=== PATIENT | male | born 1965 | race Caucasian/White ===

== ENCOUNTER → 2023-09-08 08:45 | Outpatient (REF) | payer BC, SELFPAY ==
[2023-09-08 13:07] LABS: INR 2.27; PT 24.9 Sec (11.4-14.6)
== END ==
LOC: HWLAB 08:45
PROVIDERS: ATTENDING PHYSICIAN Internal Medicine Cardiovascular Disease; FAMILY PHYSICIAN Internal Medicine
DX: Z95.2 Presence of prosthetic heart valve (principal)
CPT/HCPCS: 36415; 85610

== ENCOUNTER → 2023-10-06 09:00 | Outpatient (REF) | payer BC, SELFPAY ==
[2023-10-06 12:06] LABS: INR 2.25; PT 24.8 Sec (11.4-14.6)
== END ==
LOC: HWLAB 09:00
PROVIDERS: ATTENDING PHYSICIAN Internal Medicine Cardiovascular Disease
DX: Z95.2 Presence of prosthetic heart valve (principal)
CPT/HCPCS: 36415; 85610

== ENCOUNTER → 2023-11-03 09:03 | Outpatient (REF) | payer BC, SELFPAY ==
[2023-11-03 13:15] LABS: INR 2.05
== END ==
LOC: HWLAB 09:03
PROVIDERS: ATTENDING PHYSICIAN Internal Medicine Cardiovascular Disease
DX: Z95.2 Presence of prosthetic heart valve (principal)
CPT/HCPCS: 36415; 85610

== ENCOUNTER → 2023-12-01 09:24 | Outpatient (REF) | payer BC, SELFPAY ==
[2023-12-01 12:34] LABS: INR 1.86; PT 21.3 Sec (11.4-14.6)
== END ==
LOC: HWLAB 09:24
PROVIDERS: ATTENDING PHYSICIAN Internal Medicine Cardiovascular Disease
DX: Z95.2 Presence of prosthetic heart valve (principal)
CPT/HCPCS: 36415; 85610

== ENCOUNTER → 2023-12-08 09:10 | Outpatient (REF) | payer BC, SELFPAY ==
[2023-12-08 11:38] LABS: INR 2.34; PT 25.5 Sec (11.4-14.6)
== END ==
LOC: HWLAB 09:10
PROVIDERS: ATTENDING PHYSICIAN Internal Medicine Cardiovascular Disease
DX: Z79.01 Long term (current) use of anticoagulants (principal)
CPT/HCPCS: 36415; 85610

== ENCOUNTER → 2023-12-15 08:30 | Outpatient (REF) | payer BC, SELFPAY ==
[2023-12-15 11:07] LABS: INR 2.27
== END ==
LOC: HWLAB 08:30
PROVIDERS: ATTENDING PHYSICIAN Internal Medicine Cardiovascular Disease
DX: Z79.01 Long term (current) use of anticoagulants (principal)
CPT/HCPCS: 36415; 85610

== ENCOUNTER → 2023-12-29 09:21 | Outpatient (REF) | payer BC, SELFPAY ==
[2023-12-29 13:01] LABS: INR 2.68; PT 28.4 Sec (11.4-14.6)
== END ==
LOC: HWLAB 09:21
PROVIDERS: ATTENDING PHYSICIAN Internal Medicine Cardiovascular Disease
DX: Z79.01 Long term (current) use of anticoagulants (principal)
CPT/HCPCS: 36415; 85610

== ENCOUNTER → 2024-01-05 10:21 | Outpatient (REF) | payer BC, SELFPAY ==
[2024-01-05 11:47] LABS: INR 2.52; PT 27.1 Sec (11.4-14.6)
== END ==
LOC: HWLAB 10:21
PROVIDERS: ATTENDING PHYSICIAN Internal Medicine Cardiovascular Disease
DX: Z79.01 Long term (current) use of anticoagulants (principal)
CPT/HCPCS: 36415; 85610

== ENCOUNTER → 2024-01-26 08:45 | Outpatient (REF) | payer BC, SELFPAY ==
[2024-01-26 12:29] LABS: INR 2.48; PT 26.7 Sec (11.4-14.6)
== END ==
LOC: HWLAB 08:45
PROVIDERS: ATTENDING PHYSICIAN Internal Medicine Cardiovascular Disease
DX: Z79.01 Long term (current) use of anticoagulants (principal)
CPT/HCPCS: 36415; 85610

== ENCOUNTER → 2024-02-23 08:30 | Outpatient (REF) | payer BC, SELFPAY ==
[2024-02-23 09:47] LABS: INR 2.38; PT 25.8 Sec (11.4-14.6)
== END ==
LOC: HWLAB 08:30
PROVIDERS: ATTENDING PHYSICIAN Internal Medicine Cardiovascular Disease
DX: Z79.01 Long term (current) use of anticoagulants (principal)
CPT/HCPCS: 36415; 85610

== ENCOUNTER → 2024-03-21 08:43 | Outpatient (REF) | payer BC, SELFPAY ==
[2024-03-21 11:36] LABS: PT 24.7 Sec (11.4-14.6)
== END ==
LOC: HWLAB 08:43
PROVIDERS: ATTENDING PHYSICIAN Internal Medicine Cardiovascular Disease
DX: I48.0 Paroxysmal atrial fibrillation (principal)
CPT/HCPCS: 36415; 85610

== ENCOUNTER → 2024-04-19 08:54 | Outpatient (REF) | payer BC, SELFPAY ==
[2024-04-19 10:11] LABS: INR 2.58; PT 27.6 Sec (11.4-14.6)
== END ==
LOC: HWLAB 08:54
PROVIDERS: ATTENDING PHYSICIAN Internal Medicine Cardiovascular Disease
DX: Z79.01 Long term (current) use of anticoagulants (principal)
CPT/HCPCS: 36415; 85610

== ENCOUNTER → 2024-05-17 08:17 | Outpatient (REF) | payer BC, SELFPAY ==
[2024-05-17 13:02] LABS: INR 2.57; PT 27.5 Sec (11.4-14.6)
== END ==
LOC: HWRCS 08:17
PROVIDERS: ATTENDING PHYSICIAN Internal Medicine Cardiovascular Disease; FAMILY PHYSICIAN Internal Medicine
DX: Z95.2 Presence of prosthetic heart valve (principal); Q23.1 Congenital insufficiency of aortic valve
CPT/HCPCS: 36415; 85610; 93306

== ENCOUNTER → 2024-06-14 08:48 | Outpatient (REF) | payer BC, SELFPAY ==
[2024-06-14 12:11] LABS: % Basophils 1.4 % (0-2); % Eosinophils 8.3 % (0-6); % Immature Granulocytes 0.2 % (0-0.5); % Lymphocytes 19.7 % (20.5-51.1); % Monocytes 11.7 % (1.7-9.3); % Neutrophils 58.7 % (42.2-75.2); Absolute Basophils 0.1 10^3/uL (0-0.2); Absolute Eosinophils 0.5 10^3/uL (0-0.7); Absolute Lymphocytes 1.1 10^3/uL (1.2-3.4); Absolute Monocytes 0.7 10^3/uL (0.1-0.6); Absolute Neutrophils 3.3 10^3/uL (1.4-6.5); Hemoglobin 13.8 g/dL (13.0-18.0); Mean Corp Hgb Conc. 33.7 g/dL (33.0-37.0); Mean Corpuscular Volume 86.1 fL (80.0-94.0); Mean Platelet Volume 9.5 fL (7.4-10.4); Nucleated Red Blood Cells % 0 % (-); Platelet Count 283 10^3/uL (130-400); Red Blood Cell Count 4.76 10^6/uL (4.70-6.10); Red Cell Dist. Width 13.5 % (11.5-14.5); White Blood Cell Count 5.6 10^3/uL (4.8-10.8)
[2024-06-14 12:13] LABS: INR 2.23; PT 24.8 Sec (11.4-14.6)
[2024-06-14 12:51] LABS: ALT (SGPT) 28 U/L (0-50); AST (SGOT) 39 U/L (17-59); Albumin 4.5 g/dl (3.5-5.0); Alkaline Phosphatase 43 U/L (38-126); Blood Urea Nitrogen 18 mg/dl (9-20); Calcium 9.5 mg/dl (8.4-10.2); Carbon Dioxide 29 mmol/L (22-30); Chloride 102 mmol/L (98-107); Glucose 96 mg/dl (70-99); HDL Cholesterol 75 mg/dl; LDL Cholesterol, Calculated 130 mg/dl; Potassium 4.9 mmol/L (3.5-5.1); Sodium 139 mmol/L (135-145); Total Bilirubin 0.3 mg/dl (0.2-1.3); Total Cholesterol 213 mg/dl (50-199); Total Protein 7.3 g/dl (6.3-8.2); Triglyceride 44 mg/dl (10-149); Very Low Density Lipoprotein 8 mg/dl (0-30); eGFR > 60.00
[2024-06-14 13:24] LABS: TSH Reflex To Free T4 1.47 uIU/ml (0.47-4.68)
== END ==
LOC: HWLAB 08:48
PROVIDERS: ATTENDING PHYSICIAN Internal Medicine Cardiovascular Disease; FAMILY PHYSICIAN Nurse Practitioner Adult Health
DX: Z79.01 Long term (current) use of anticoagulants (principal); R79.89 Other specified abnormal findings of blood chemistry
CPT/HCPCS: 36415; 80053; 80061; 84443; 85025; 85610

== ENCOUNTER → 2024-07-12 08:54 | Outpatient (REF) | payer BC, SELFPAY ==
[2024-07-12 12:07] LABS: INR 2.63; PT 28.1 Sec (11.4-14.6)
[2024-07-12 12:51] LABS: PSA, Total - Screen 1.34 ng/ml (0.0-4.0)
== END ==
LOC: HWLAB 08:54
PROVIDERS: ATTENDING PHYSICIAN Internal Medicine Cardiovascular Disease; FAMILY PHYSICIAN Nurse Practitioner Adult Health
DX: Z00.00 Encounter for general adult medical examination without abnormal findings (principal); Z80.42 Family history of malignant neoplasm of prostate; Z12.5 Encounter for screening for malignant neoplasm of prostate; Z79.01 Long term (current) use of anticoagulants
CPT/HCPCS: 36415; 85610; G0103

== ENCOUNTER → 2024-08-09 07:44 | Outpatient (REF) | payer BC, SELFPAY ==
[2024-08-09 09:45] LABS: PT 28.6 Sec (11.4-14.6)
== END ==
LOC: HWLAB 07:44
PROVIDERS: ATTENDING PHYSICIAN Internal Medicine Cardiovascular Disease; FAMILY PHYSICIAN Nurse Practitioner Adult Health
DX: Z95.2 Presence of prosthetic heart valve (principal)
CPT/HCPCS: 36415; 85610

== ENCOUNTER → 2024-09-06 08:29 | Outpatient (REF) | payer BC, SELFPAY ==
[2024-09-06 12:29] LABS: INR 2.75; PT 29.1 Sec (11.4-14.6)
== END ==
LOC: HWLAB 08:29
PROVIDERS: ATTENDING PHYSICIAN Internal Medicine Cardiovascular Disease; FAMILY PHYSICIAN Nurse Practitioner Adult Health
DX: Z95.2 Presence of prosthetic heart valve (principal)
CPT/HCPCS: 36415; 85610

== ENCOUNTER → 2024-10-04 08:32 | Outpatient (REF) | payer BC, SELFPAY ==
[2024-10-04 09:51] LABS: INR 3.46; PT 34.6 Sec (11.4-14.6)
== END ==
LOC: HWLAB 08:32
PROVIDERS: ATTENDING PHYSICIAN Internal Medicine Cardiovascular Disease; FAMILY PHYSICIAN Nurse Practitioner Adult Health
DX: Z79.01 Long term (current) use of anticoagulants (principal)
CPT/HCPCS: 36415; 85610

== ENCOUNTER → 2024-10-11 08:57 | Outpatient (REF) | payer BC, SELFPAY ==
[2024-10-11 13:10] LABS: INR 3.43; PT 34.4 Sec (11.4-14.6)
== END ==
LOC: HWLAB 08:57
PROVIDERS: ATTENDING PHYSICIAN Internal Medicine Cardiovascular Disease; FAMILY PHYSICIAN Nurse Practitioner Adult Health
DX: Z79.01 Long term (current) use of anticoagulants (principal)
CPT/HCPCS: 36415; 85610

== ENCOUNTER → 2024-10-17 08:46 | Outpatient (REF) | payer BC, SELFPAY ==
[2024-10-17 12:37] LABS: INR 1.93; PT 22.5 Sec (11.4-14.6)
== END ==
LOC: HWLAB 08:46
PROVIDERS: ATTENDING PHYSICIAN Internal Medicine Cardiovascular Disease; FAMILY PHYSICIAN Nurse Practitioner Adult Health
DX: Z79.01 Long term (current) use of anticoagulants (principal)
CPT/HCPCS: 36415; 85610

== ENCOUNTER → 2024-10-25 08:58 | Outpatient (REF) | payer BC, SELFPAY | LOC: HWLAB 08:58 | PROVIDERS: ATTENDING PHYSICIAN Internal Medicine Cardiovascular Disease; FAMILY PHYSICIAN Nurse Practitioner Adult Health | DX: Z79.01 Long term (current) use of anticoagulants (principal) | CPT/HCPCS: 36415; 85610 ==

== ENCOUNTER → 2024-11-08 09:10 | Outpatient (REF) | payer BC, SELFPAY ==
[2024-11-08 13:05] LABS: INR 2.52; PT 27.2 Sec (11.4-14.6)
== END ==
LOC: HWLAB 09:10
PROVIDERS: ATTENDING PHYSICIAN Internal Medicine Cardiovascular Disease; FAMILY PHYSICIAN Nurse Practitioner Adult Health
DX: Z95.2 Presence of prosthetic heart valve (principal)
CPT/HCPCS: 36415; 85610

== ENCOUNTER → 2024-11-15 09:17 | Outpatient (REF) | payer BC, SELFPAY ==
[2024-11-15 12:28] LABS: INR 2.43; PT 26.4 Sec (11.4-14.6)
== END ==
LOC: HWLAB 09:17
PROVIDERS: ATTENDING PHYSICIAN Internal Medicine Cardiovascular Disease; FAMILY PHYSICIAN Nurse Practitioner Adult Health
DX: Z95.2 Presence of prosthetic heart valve (principal)
CPT/HCPCS: 36415; 85610

== ENCOUNTER → 2024-11-25 08:20 | Outpatient (REF) | payer BC, SELFPAY ==
[2024-11-25 11:50] LABS: PT 28.6 Sec (11.4-14.6)
== END ==
LOC: HWLAB 08:20
PROVIDERS: ATTENDING PHYSICIAN Internal Medicine Cardiovascular Disease; FAMILY PHYSICIAN Nurse Practitioner Adult Health
DX: Z95.2 Presence of prosthetic heart valve (principal)
CPT/HCPCS: 36415; 85610

== ENCOUNTER → 2024-12-24 09:43 | Outpatient (REF) | payer BC, SELFPAY ==
[2024-12-24 12:37] LABS: INR 2.93; PT 30.5 Sec (11.4-14.6)
== END ==
LOC: HWLAB 09:43
PROVIDERS: ATTENDING PHYSICIAN Internal Medicine Cardiovascular Disease; FAMILY PHYSICIAN Nurse Practitioner Adult Health
DX: Z95.2 Presence of prosthetic heart valve (principal)
CPT/HCPCS: 36415; 85610

== ENCOUNTER → 2025-01-21 08:15 | Outpatient (REF) | payer BC, SELFPAY ==
[2025-01-21 12:24] LABS: INR 2.79; PT 29.4 Sec (11.4-14.6)
== END ==
LOC: HWLAB 08:15
PROVIDERS: ATTENDING PHYSICIAN Internal Medicine Cardiovascular Disease; FAMILY PHYSICIAN Nurse Practitioner Adult Health
DX: I48.0 Paroxysmal atrial fibrillation (principal); Z95.2 Presence of prosthetic heart valve
CPT/HCPCS: 36415; 85610

== ENCOUNTER → 2025-02-06 08:57 | Outpatient (REF) | payer BC, SELFPAY ==
[2025-02-06 12:55] LABS: INR 2.44; PT 27.0 Sec (11.4-14.6)
== END ==
LOC: HWLAB 08:57
PROVIDERS: ATTENDING PHYSICIAN Internal Medicine Cardiovascular Disease; FAMILY PHYSICIAN Nurse Practitioner Adult Health
DX: Z95.2 Presence of prosthetic heart valve (principal); I48.0 Paroxysmal atrial fibrillation
CPT/HCPCS: 36415; 85610

== ENCOUNTER → 2025-02-10 08:32 | Outpatient (REF) | payer BC, SELFPAY ==
[2025-02-10 10:15] LABS: INR 3.23; PT 32.8 Sec (11.4-14.6)
== END ==
LOC: HWLAB 08:32
PROVIDERS: ATTENDING PHYSICIAN Internal Medicine Cardiovascular Disease; FAMILY PHYSICIAN Nurse Practitioner Adult Health
DX: Z95.2 Presence of prosthetic heart valve (principal); I48.0 Paroxysmal atrial fibrillation
CPT/HCPCS: 36415; 85610

== ENCOUNTER → 2025-02-17 07:32 | Outpatient (REF) | payer BC, SELFPAY ==
[2025-02-17 09:41] LABS: INR 2.44; PT 26.5 Sec (11.4-14.6)
== END ==
LOC: HWLAB 07:32
PROVIDERS: ATTENDING PHYSICIAN Internal Medicine Cardiovascular Disease; FAMILY PHYSICIAN Nurse Practitioner Adult Health
DX: Z95.2 Presence of prosthetic heart valve (principal); I48.0 Paroxysmal atrial fibrillation
CPT/HCPCS: 36415; 85610

== ENCOUNTER → 2025-02-24 08:21 | Outpatient (REF) | payer BC, SELFPAY ==
[2025-02-24 10:39] LABS: INR 2.47; PT 27.2 Sec (11.4-14.6)
== END ==
LOC: HWLAB 08:21
PROVIDERS: ATTENDING PHYSICIAN Internal Medicine Cardiovascular Disease; FAMILY PHYSICIAN Nurse Practitioner Adult Health
DX: Z95.2 Presence of prosthetic heart valve (principal); I48.0 Paroxysmal atrial fibrillation
CPT/HCPCS: 36415; 85610

== ENCOUNTER → 2025-03-03 08:28 | Outpatient (REF) | payer BC, SELFPAY ==
[2025-03-03 10:02] LABS: INR 2.82; PT 29.6 Sec (11.4-14.6)
== END ==
LOC: HWLAB 08:28
PROVIDERS: ATTENDING PHYSICIAN Internal Medicine Cardiovascular Disease; FAMILY PHYSICIAN Nurse Practitioner Adult Health
DX: Z95.2 Presence of prosthetic heart valve (principal); I48.0 Paroxysmal atrial fibrillation
CPT/HCPCS: 36415; 85610

== ENCOUNTER → 2025-03-10 08:58 | Outpatient (REF) | payer BC, SELFPAY ==
[2025-03-10 13:25] LABS: INR 2.57; PT 27.6 Sec (11.4-14.6)
== END ==
LOC: HWLAB 08:58
PROVIDERS: ATTENDING PHYSICIAN Internal Medicine Cardiovascular Disease; FAMILY PHYSICIAN Nurse Practitioner Adult Health
DX: I48.0 Paroxysmal atrial fibrillation (principal); Z95.2 Presence of prosthetic heart valve
CPT/HCPCS: 36415; 85610

== ENCOUNTER → 2025-03-19 07:20 | Outpatient (REF) | payer BC, SELFPAY ==
[2025-03-19 10:59] LABS: ALT (SGPT) 46 U/L (0-50); AST (SGOT) 47 U/L (17-59); HDL Cholesterol 70 mg/dl; LDL Cholesterol, Calculated 82 mg/dl; Very Low Density Lipoprotein 12 mg/dl (0-30)
== END ==
LOC: HWLAB 07:20
PROVIDERS: ATTENDING PHYSICIAN Internal Medicine Cardiovascular Disease; FAMILY PHYSICIAN Nurse Practitioner Adult Health
DX: I70.0 Atherosclerosis of aorta (principal)
CPT/HCPCS: 36415; 80061; 84450; 84460

== ENCOUNTER → 2025-04-04 09:11 | Outpatient (REF) | payer BC, SELFPAY ==
[2025-04-04 12:23] LABS: INR 2.02; PT 23.0 Sec (11.4-14.6)
== END ==
LOC: HWLAB 09:11
PROVIDERS: ATTENDING PHYSICIAN Internal Medicine Cardiovascular Disease; FAMILY PHYSICIAN Nurse Practitioner Adult Health
DX: Z95.2 Presence of prosthetic heart valve (principal); I48.0 Paroxysmal atrial fibrillation
CPT/HCPCS: 36415; 85610

== ENCOUNTER → 2025-05-02 08:29 | Outpatient (REF) | payer BC, SELFPAY ==
[2025-05-02 10:20] LABS: INR 2.14; PT 24.1 Sec (11.4-14.6)
== END ==
LOC: HWLAB 08:29
PROVIDERS: ATTENDING PHYSICIAN Internal Medicine Cardiovascular Disease; FAMILY PHYSICIAN Nurse Practitioner Adult Health
DX: Z95.2 Presence of prosthetic heart valve (principal); I48.0 Paroxysmal atrial fibrillation
CPT/HCPCS: 36415; 85610

== ENCOUNTER → 2025-05-30 08:29 | Outpatient (REF) | payer BC, SELFPAY ==
[2025-05-30 12:52] LABS: INR 2.20; PT 24.5 Sec (11.4-14.6)
== END ==
LOC: HWLAB 08:29
PROVIDERS: ATTENDING PHYSICIAN Internal Medicine Cardiovascular Disease; FAMILY PHYSICIAN Nurse Practitioner Adult Health
DX: I48.0 Paroxysmal atrial fibrillation (principal)
CPT/HCPCS: 36415; 85610

== ENCOUNTER → 2025-06-27 08:58 | Outpatient (REF) | payer BC, SELFPAY ==
[2025-06-27 10:05] LABS: INR 2.16; PT 24.3 Sec (11.4-14.6)
== END ==
LOC: REG 08:58
PROVIDERS: ATTENDING PHYSICIAN Internal Medicine Cardiovascular Disease
DX: I48.0 Paroxysmal atrial fibrillation (principal); Z95.2 Presence of prosthetic heart valve
CPT/HCPCS: 36415; 85610

== ENCOUNTER → 2025-07-28 08:19 | Outpatient (REF) | payer BC, SELFPAY ==
[2025-07-28 10:01] LABS: Hematocrit 39.4 % (39.0-52.0); Hemoglobin 13.1 g/dL (13.0-18.0); Mean Corp Hgb Conc. 33.2 g/dL (33.0-37.0); Mean Corpuscular Volume 86.6 fL (80.0-94.0); Nucleated Red Blood Cells % 0 % (-); Platelet Count 255 10^3/uL (130-400); Red Cell Dist. Width 14.1 % (11.5-14.5)
[2025-07-28 10:14] LABS: INR 2.49; PT 27.2 Sec (11.4-14.6)
[2025-07-28 10:27] LABS: ALT (SGPT) 41 U/L (0-50); AST (SGOT) 46 U/L (17-59); Albumin 4.3 g/dl (3.5-5.0); Alkaline Phosphatase 41 U/L (38-126); Blood Urea Nitrogen 16 mg/dl (9-20); Calcium 9.1 mg/dl (8.4-10.2); Carbon Dioxide 26 mmol/L (22-30); Chloride 105 mmol/L (98-107); Glucose 92 mg/dl (70-99); HDL Cholesterol 66 mg/dl; LDL Cholesterol, Calculated 84 mg/dl; Potassium 4.3 mmol/L (3.5-5.1); Sodium 137 mmol/L (135-145); Total Protein 7.1 g/dl (6.3-8.2); Very Low Density Lipoprotein 12 mg/dl (0-30); eGFR > 60.00
[2025-07-28 10:51] LABS: PSA, Total - Screen 0.84 ng/ml (0.0-4.0)
== END ==
LOC: HWLAB 08:19
PROVIDERS: ATTENDING PHYSICIAN Internal Medicine Cardiovascular Disease; FAMILY PHYSICIAN Nurse Practitioner Adult Health
DX: Z00.00 Encounter for general adult medical examination without abnormal findings (principal); Z12.5 Encounter for screening for malignant neoplasm of prostate; Z13.29 Encounter for screening for other suspected endocrine disorder; Z79.899 Other long term (current) drug therapy; B35.1 Tinea unguium; Z95.2 Presence of prosthetic heart valve; I48.0 Paroxysmal atrial fibrillation
CPT/HCPCS: 36415; 80053; 80061; 84443; 85025; 85610; 87102; G0103